=== PATIENT | male | born 1965 | race Caucasian/White ===

== ENCOUNTER → 2019-04-15 08:46 | Outpatient (BNVA) | payer MEDICARE, SELFPAY | PROVIDERS: Family Provider Internal Medicine; PCP Internal Medicine; Visit Provider Nurse Practitioner | DX: M54.16 Radiculopathy, lumbar region (principal); M25.552 Pain in left hip; Z79.891 Long term (current) use of opiate analgesic | CPT/HCPCS: 99214 ==

== ENCOUNTER → 2019-06-17 07:52 | Outpatient (BNVA) | payer MEDICARE, SELFPAY | PROVIDERS: Family Provider Internal Medicine; PCP Internal Medicine; Visit Provider Anesthesiology | DX: M25.552 Pain in left hip (principal); M79.18 Myalgia, other site; Z71.89 Other specified counseling | CPT/HCPCS: 20552; 77003; J1030; J3490 ==

== ENCOUNTER → 2019-08-20 07:55 | Outpatient (BNVA) | payer MEDICARE, SELFPAY | PROVIDERS: Family Provider Internal Medicine; PCP Internal Medicine; Visit Provider Anesthesiology | DX: M51.36 Other intervertebral disc degeneration, lumbar region (principal); M54.16 Radiculopathy, lumbar region; M47.16 Other spondylosis with myelopathy, lumbar region; M54.9 Dorsalgia, unspecified; M25.552 Pain in left hip; G47.00 Insomnia, unspecified; Z79.891 Long term (current) use of opiate analgesic | CPT/HCPCS: 99214 ==

== ENCOUNTER → 2019-11-25 09:29 | Outpatient (BNVA) | payer MEDICARE, SELFPAY | PROVIDERS: Family Provider Internal Medicine; PCP Internal Medicine; Visit Provider Anesthesiology | DX: M54.41 Lumbago with sciatica, right side (principal); M51.36 Other intervertebral disc degeneration, lumbar region; M47.16 Other spondylosis with myelopathy, lumbar region; M54.16 Radiculopathy, lumbar region; M54.9 Dorsalgia, unspecified; G47.00 Insomnia, unspecified; Z79.891 Long term (current) use of opiate analgesic | CPT/HCPCS: 99213; 99214 ==

== ENCOUNTER → 2019-12-01 13:18 | Outpatient (BNVA) | payer MEDICARE, SELFPAY | PROVIDERS: Family Provider Internal Medicine; PCP Internal Medicine; Visit Provider Anesthesiology Pain Medicine | DX: M54.16 Radiculopathy, lumbar region (principal); M54.9 Dorsalgia, unspecified | CPT/HCPCS: 64483; 64484; J1040; J3490 ==

== ENCOUNTER → 2020-02-25 08:05 | Outpatient (BNVA) | payer MEDICARE, SELFPAY | PROVIDERS: Family Provider Internal Medicine; PCP Internal Medicine; Visit Provider Anesthesiology | DX: M54.41 Lumbago with sciatica, right side (principal); M51.36 Other intervertebral disc degeneration, lumbar region; M47.16 Other spondylosis with myelopathy, lumbar region; M54.16 Radiculopathy, lumbar region; G47.00 Insomnia, unspecified; M54.9 Dorsalgia, unspecified; Z79.891 Long term (current) use of opiate analgesic | CPT/HCPCS: 99213; 99214 ==

== ENCOUNTER 2020-04-29 12:43 | Emergency (ER) | payer MEDICARE, SELFPAY ==
[2020-04-29 13:13] VITALS: BP 145/86; PULSE 83; RESP 18; TEMP 37.2; O2SAT 98; BMI 32.3
[2020-04-29 13:25] VITALS: BP 145/86; PULSE 82; RESP 18; TEMP 37.2; O2SAT 98
--- NOTE | 2020-04-29 13:48 | W.ED.GENADLT ---
HPI - General Adult General: Chief complaint: General Medical Stated complaint: covid symptoms, needs infusion Time Seen by Provider: 04/29/20 13:25 History of Present Illness: HPI narrative: Patient sent by Dr. Griffin's office due to being Covid positive. Patient does not qualify for bam infusion due to criteria and he is age 54 [address] Griffin's office MD complaint: Positive Covid Onset (ago): day(s) Associated symptoms: Reports fevers/chills and other (Myalgias); Deny chest pain, dyspnea, headache(s), nausea, rash or vomiting Review of Systems Const: Reports: fever(s); Denies: chills or body aches Eyes: Denies: change in vision or blurry vision ENMT: Denies: throat pain or nasal congestion Card: Denies: chest pain or dyspnea on exertion Resp: Denies: dyspnea, productive cough or non-productive cough GI: Denies: abdominal pain, nausea or vomiting : Denies: difficulty urinating Musc: Reports: other (Myalgias); Denies: extremity pain Skin/Breast: Denies: rash Neuro: Denies: headache(s) Psych: Denies: anxiety or depression Clifford/Lymph: Denies: easy bruising PFSH ED PFSH: Medical History (Updated 04/29/20 @ 13:48 by GALEN Cruz) DDD (degenerative disc disease), lumbar Encounter for long-term opiate analgesic use Left hip pain Lumbar radiculitis Lumbar spondylosis with myelopathy Myalgia Surgical History History of back surgery Nerve damage 1997 [facility] Hx of tonsillectomy Family History Unknown Cancer Prostate cancer-Family members in general Mother Hypertension Social History (Updated 02/25/20 @ 08:36 by Rachel Lovelace LPN) Smoking and tobacco status: never smoked Second hand smoke exposure: No Alcohol intake: current Alcohol intake frequency: holidays/special occasions only History of recent travel: No Physical Exam Const: COMMON NORMALS: no acute distress Resp: COMMON NORMALS: normal respiratory effort Psych: COMMON NORMALS: mental status grossly normal Course Vital Signs: Vital signs: Vital Signs Temperature 99 F 04/29/20 13:25 Pulse Rate 82 04/29/20 13:25 Respiratory Rate 18 04/29/20 13:25 Blood Pressure 119/89 04/29/20 13:53 Pulse Oximetry 98 04/29/20 13:25 MDM - General Adult MDM Narrative: Medical decision making narrative: Dr. Griffin sent patient over due to positive Covid test in her office yesterday. Patient does not meet inclusion criteria due to being age 54 for him though he has COPD patient is not symptomatic besides fever low-grade and body aches this time. I discussed this with Beverley at pharmacy and also Dr. Lyles. Patient will be discharged from the ER he is aware symptoms and signs to watch for for worsening symptoms. We will monitor oxygen. Discharge Plan Discharge Patient Disposition: Home Clinical Impression: COVID-19 virus infection Condition: Stable Prescriptions: No Action sennosides-docusate sodium [Senna Plus] 8.6-50 mg tablet 1 tab-cap PO .one tab hs PRNRF: 0 ranitidine HCl 300 mg tablet 300 mg PO BID RF: 0 Advair HFA 230-21 mcg/actuation HFA aerosol inhaler 2 puff INHALATION ONCE PRNRF: 0 albuterol sulfate 90 mcg/actuation HFA aerosol inhaler 1 inh INHALATION ONCE PRNRF: 0 atorvastatin 20 mg tablet 20 mg PO QDAY RF: 0 montelukast [Singulair] 10 mg tablet 10 mg PO QDAY RF: 0 multivitamin Tablet 1 tab PO QAM RF: 0 loratadine [Claritin] 10 mg tablet 10 mg PO QDAY RF: 0 vitamin D3 tablet as directed RF: 0 telmisartan [Micardis] 40 mg tablet 40 mg PO QDAY RF: 0 fluticasone propionate [Flonase Allergy Relief] 50 mcg/actuation spray,suspension 1 spray INTRANASAL BID RF: 0 ibuprofen 200 mg tablet 200 mg PO .2 tabs PRNRF: 0 oxybutynin chloride 5 mg tablet 5 mg PO DAILY RF: 0 tramadol 50 mg tablet 100 mg PO .2 tab QID PRN (Reason: pain) 30 Days Qty: 240 RF: 2 zolpidem 10 mg tablet 10 mg PO .one at bedtime 30 Days Qty: 30 RF: 2 Discharge Orders: Discharge ED (Routine); Ordered 04/29/20 Ordered By: Albino Gunter Referrals: Estephania Doran MD [Primary Care Provider] - Discharge Diet: Usual diet Discharge Activity: Resume usual activity Patient Instructions: Viral Syndrome (ED) Activity Restrictions/Additional Instructions: Self quarantine next 10 days. Follow-up Dr. Griffin or return ER if oxygen levels decrease or symptoms significantly worsen. Can take Tylenol or ibuprofen for discomfort. Follow Centers for Disease Control guidelines for positive Covid infection at home. Coding Level of Care Code ED Multimedia Engineer for Chg Fwd Exam Expanded Problem Focused
[2020-04-29 13:53] VITALS: BP 119/89
== END 2020-04-29 13:55 | disposition home or self-care (01) ==
PROVIDERS: Emergency Provider Nurse Practitioner Family; PCP Internal Medicine
DX: U07.1 COVID-19 (principal)
CPT/HCPCS: 99281

== ENCOUNTER → 2020-05-30 08:39 | Outpatient (BNVA) | payer MEDICARE, SELFPAY | PROVIDERS: PCP Internal Medicine; Visit Provider Anesthesiology | DX: M51.36 Other intervertebral disc degeneration, lumbar region (principal); M54.16 Radiculopathy, lumbar region; M54.9 Dorsalgia, unspecified; M47.16 Other spondylosis with myelopathy, lumbar region; G47.00 Insomnia, unspecified; Z79.891 Long term (current) use of opiate analgesic | CPT/HCPCS: 99213 ==

== ENCOUNTER → 2020-06-01 09:56 | Outpatient (BNVA) | payer MEDICARE, SELFPAY | PROVIDERS: PCP Internal Medicine; Visit Provider Anesthesiology | DX: G89.29 Other chronic pain (principal); M54.9 Dorsalgia, unspecified; M47.16 Other spondylosis with myelopathy, lumbar region; M54.16 Radiculopathy, lumbar region | CPT/HCPCS: 62323; J1040; J3490 ==

== ENCOUNTER → 2020-08-25 08:09 | Outpatient (BNVA) | payer MEDICARE, SELFPAY | PROVIDERS: PCP Internal Medicine; Visit Provider Anesthesiology | DX: M54.16 Radiculopathy, lumbar region (principal); M54.9 Dorsalgia, unspecified; M47.16 Other spondylosis with myelopathy, lumbar region; M51.36 Other intervertebral disc degeneration, lumbar region; G47.00 Insomnia, unspecified; Z79.891 Long term (current) use of opiate analgesic | CPT/HCPCS: 99213 ==

== ENCOUNTER → 2020-12-01 08:03 | Outpatient (BNVA) | payer MEDICARE, SELFPAY | PROVIDERS: PCP Internal Medicine; Visit Provider Anesthesiology | DX: M51.36 Other intervertebral disc degeneration, lumbar region (principal); M54.16 Radiculopathy, lumbar region; M47.16 Other spondylosis with myelopathy, lumbar region; G47.00 Insomnia, unspecified; Z79.891 Long term (current) use of opiate analgesic | CPT/HCPCS: 99213 ==

== ENCOUNTER → 2020-12-07 08:19 | Outpatient (BNVA) | payer MEDICARE, SELFPAY | PROVIDERS: PCP Internal Medicine; Visit Provider Anesthesiology | DX: M54.16 Radiculopathy, lumbar region (principal); M51.36 Other intervertebral disc degeneration, lumbar region; M47.16 Other spondylosis with myelopathy, lumbar region; Z79.891 Long term (current) use of opiate analgesic | CPT/HCPCS: 62323; J1040; J3490 ==

== ENCOUNTER → 2021-03-22 08:21 | Outpatient (BNVA) | payer MEDICARE, SELFPAY | PROVIDERS: PCP Internal Medicine; Visit Provider Anesthesiology | DX: M47.16 Other spondylosis with myelopathy, lumbar region (principal); M51.36 Other intervertebral disc degeneration, lumbar region; M54.16 Radiculopathy, lumbar region; G47.00 Insomnia, unspecified; Z79.891 Long term (current) use of opiate analgesic | CPT/HCPCS: 99213 ==

== ENCOUNTER 2022-03-13 09:53 | Outpatient (CLI) | payer MEDICARE, SELFPAY ==
--- NOTE | 2022-03-13 10:23 | XRR_ITS ---
PROCEDURE INFORMATION: Exam: XR Chest Exam date and time: 03/13/2022 10:23 AM Age: 56 years old Clinical indication: Patient HX: History--cough for 1week TECHNIQUE: Imaging protocol: Radiologic exam of the chest. Views: 2 views. COMPARISON: CR XR chest 2V* [id number] 07/30/2017 11:05 AM FINDINGS: Lungs: See Pleural spaces finding. Pleural spaces: Vague opacity right cardiophrenic angle partially obscuring medial margin of the right hemidiaphragm on the current study that may be due to increasing pericardial fat but should be confirmed on CT examination of the chest to exclude underlying mass. Lung louis are otherwise aerated and clear. Heart/Mediastinum: Cardiac silhouette is not enlarged. Bones/joints: Unremarkable. XR/XR chest 2V* [id number] IMPRESSION: Interval development of ill-defined opacity right cardiophrenic angle of uncertain etiology as discussed above.
== END 2022-03-13 09:54 | disposition home or self-care (01) ==
LOC: RAD 09:56
PROVIDERS: PCP Internal Medicine; Visit Provider Internal Medicine
DX: R05.9 Cough, unspecified (principal)
CPT/HCPCS: 71046

== ENCOUNTER 2022-03-18 07:30 | Outpatient (CLI) | payer MEDICARE, SELFPAY ==
--- NOTE | 2022-03-18 07:45 | CTR_ITS ---
PROCEDURE INFORMATION: Exam: CT Chest With Contrast; Diagnostic Exam date and time: 03/18/2022 8:01 AM Age: 56 years old Clinical indication: Abnormal findings; Abnormal radiologic exam of lung or chest; Patient HX: Cough x 3 wks; Additional info: Abnormal chest xray/cough TECHNIQUE: Imaging protocol: Diagnostic computed tomography of the chest with contrast. Radiation optimization: All CT scans at this facility use at least one of these dose optimization techniques: automated exposure control; mA and/or kV adjustment per patient size (includes targeted exams where dose is matched to clinical indication); or iterative reconstruction. Contrast material: OMNIPAQUE 350; Contrast volume: 95 ml; Contrast route: INTRAVENOUS (IV); COMPARISON: CR XR chest 2V* [id number] 03/13/2022 10:23 AM RADIATION DOSE METRICS: Total DLP (mGy-cm): 797.64 FINDINGS: Thyroid: The bilateral thyroid lobes are unremarkable. Lungs: Medial segment right middle lobe mild subsegmental atelectasis/scarring. Mild inferior lingular pulmonary subsegmental atelectasis. No right costophrenic angle abnormality identified. No mass. Pleural spaces: No pneumothorax. No pleural effusion. Heart: No cardiomegaly. No pericardial effusion. Coronary arteries: No coronary artery calcifications. Lymph nodes: No enlarged lymph nodes. Vasculature: Unremarkable. No aortic aneurysm. Spleen: A small anterior splenule is present. Bones/joints: Vertebral body marginal osteophytes are noted at midthoracic spinal levels. Soft tissues: Unremarkable. CT/CT chest w con* [id number] IMPRESSION: No acute findings.
[2022-03-18] MEDS: iohexol 350 mg/mL 500 mL Btl (per mL) IV (08:05)
== END 2022-03-18 07:31 | disposition home or self-care (01) ==
PROVIDERS: PCP Internal Medicine; Visit Provider Nurse Practitioner Family
DX: R93.89 Abnormal findings on diagnostic imaging of other specified body structures (principal); R05.9 Cough, unspecified
CPT/HCPCS: 71260; Q9967

== ENCOUNTER 2022-04-09 13:07 | Outpatient (CLI) | payer MEDICARE, SELFPAY | END 2022-04-09 13:08 | disposition home or self-care (01) | LOC: RT 13:07 | PROVIDERS: PCP Internal Medicine; Visit Provider Nurse Practitioner Family | DX: R05.9 Cough, unspecified (principal); J45.30 Mild persistent asthma, uncomplicated | CPT/HCPCS: 94060; J7613 ==

== ENCOUNTER 2022-08-21 07:04 | Outpatient (CLI) | payer MEDICARE, SELFPAY ==
--- NOTE | 2022-08-21 07:10 | CT_ITS ---
WS: [id number] CT LUMBAR SPINE TECHNIQUE: Noncontrast CT of the lumbar spine with coronal and sagittal reformatted images. CLINICAL INFORMATION: DEGENERATIVE DISC DISEASE, LUMBOSACRAL SPINE W/RADICULOPATHY COMPARISON: None. DLP: 1238.[address] scans at [facility] use at least one of these dose optimization techniques: automated e xposure control; mA and/or kV adjustment per patient size (includes targeted exams where dose is matc hed to clinical indication); or iterative reconstruction. FINDINGS: Minimal lumbar curve. Prior postoperative changes anterior screw fixation L5-S1 with interbody fusion graft. Evidence of bony bridging beyond the confines of the graft. Fracture of the anterior S1 fixat ion screw with slight angulation. L1-L2: Mild facet arthropathy. Spinal canal and foramen are patent. L2-L3: Mild annular bulging. Slight effacement of ventral thecal sac. Mild facet arthropathy. Spinal canal and foramen are patent. L3-L4: Mild annular bulging with slight effacement of the ventral thecal sac. Mild facet arthropathy. Spinal canal and foramen are patent. L4-L5: Mild disc bulging with slight impingement traversing L5 nerve roots bilaterally. Moderate face t arthropathy. Ligamentum flavum hypertrophy. Mild RIGHT greater than LEFT foraminal narrowing. L5-S1: Postoperative changes. Spinal canal and foramen are patent. Moderate facet arthropathy. Adrenal glands are normal. CT/CT lumbar spine wo con* [id number] IMPRESSION: 1. Anterior screw fixation L5-S1 with interbody fusion graft. Evidence of bony bridging beyond the confines of the graft. 2. Fracture of the anterior S1 fixation screw. L5 fixation screw appears intac t. 3. Annular bulging L4-L5 with slight impingement traversing L5 nerve roots denise aterally. Mild RIGHT greater than LEFT foraminal narrowing at this level. 4. Moderate facet arthropathy L4-L5. 5. Mild annular bulging L3-L4 with mild RIGHT foraminal narrowing.
== END 2022-08-21 07:05 | disposition home or self-care (01) ==
PROVIDERS: PCP Internal Medicine; Visit Provider Nurse Practitioner Family
DX: M51.17 Intervertebral disc disorders with radiculopathy, lumbosacral region (principal); Z98.1 Arthrodesis status; M47.816 Spondylosis without myelopathy or radiculopathy, lumbar region
CPT/HCPCS: 72131

== ENCOUNTER → 2022-09-09 15:07 | Outpatient (BNVA) | payer MEDICARE, SELFPAY | PROVIDERS: PCP Internal Medicine; Visit Provider Internal Medicine Pulmonary Disease | DX: M25.641 Stiffness of right hand, not elsewhere classified (principal); M25.642 Stiffness of left hand, not elsewhere classified; J45.909 Unspecified asthma, uncomplicated; R06.02 Shortness of breath | CPT/HCPCS: 36415; 82785; 85025; 85651; 86003; 86140; 86160; 86162; 86235; 86255; 86376; 99204 ==

== ENCOUNTER → 2022-10-21 11:21 | Outpatient (BNVA) | payer MEDICARE, SELFPAY | PROVIDERS: PCP Internal Medicine; Visit Provider Internal Medicine Pulmonary Disease | DX: J45.909 Unspecified asthma, uncomplicated (principal); M25.641 Stiffness of right hand, not elsewhere classified; M25.642 Stiffness of left hand, not elsewhere classified; J82.83 Eosinophilic asthma | CPT/HCPCS: 99214 ==

== ENCOUNTER 2022-11-20 08:00 | Outpatient (CLI) | payer MEDICARE, SELFPAY ==
[2022-11-20 08:31] VITALS: PULSE 77
[2022-11-20] MEDS: albuterol 2.5 mg/3 mL Neb INHALATION (08:31)
[2022-11-20 08:37] VITALS: PULSE 72; RESP 18; O2SAT 98
== END 2022-11-20 08:01 | disposition home or self-care (01) ==
PROVIDERS: PCP Internal Medicine; Visit Provider Internal Medicine Pulmonary Disease
DX: R06.09 Other forms of dyspnea (principal)
CPT/HCPCS: 94060; 94618; 94726; 94729; J7613

== ENCOUNTER → 2023-02-24 09:46 | Outpatient (BNVA) | payer MEDICARE, SELFPAY | PROVIDERS: PCP Internal Medicine; Visit Provider Internal Medicine Pulmonary Disease | DX: J98.4 Other disorders of lung (principal); M25.641 Stiffness of right hand, not elsewhere classified; M25.642 Stiffness of left hand, not elsewhere classified; J45.30 Mild persistent asthma, uncomplicated | CPT/HCPCS: 99214 ==

== ENCOUNTER → 2023-05-29 07:56 | Outpatient (BNVA) | payer MEDICARE, SELFPAY | PROVIDERS: PCP Internal Medicine; Visit Provider Surgery | DX: Z12.11 Encounter for screening for malignant neoplasm of colon (principal) | CPT/HCPCS: 99024; 99204 ==

== ENCOUNTER 2023-07-30 06:14 | Day surgery (SDC) | payer MEDICARE, SELFPAY ==
[2023-07-30 06:32] VITALS: BP 162/92; PULSE 82; RESP 18; TEMP 36.5; O2SAT 97; BMI 32.3
[2023-07-30] MEDS: sodium chloride 0.9% 1,000 ML 30 ML IV (06:40)
--- NOTE | 2023-07-30 06:41 | ANES.PREANE2 ---
Pre-Anesthetic Assessment Height/Weight: Height 1.78 m Weight 102.058 kg Temp Pulse Resp BP Pulse Ox O2 Del Method 97.7 F 82 18 162/92 97 Room Air 07/30/23 06:32 07/30/23 06:32 07/30/23 06:32 07/30/23 06:32 07/30/23 06:32 07/30/23 06:32 Preop Diagnosis: Screening Operation Date: 07/30/23 07:15 Proposed Procedures p Colonoscopy(Not Applicable) - Darek Zamudio DO Familial anesthetic complications: None Was Beta Kaya taken within 24 hours: N/A Was Clonidine taken within 24 hours: N/A Last intake: Intake Last Liquid Date 07/29/23 Last Liquid Time 20:00 Last Solid Date 07/28/23 Last Solid Time 16:00 Social Alcohol (Few times a week) and No tobacco Exam alert, oriented x 3, clear to auscultation bilaterally and regular rate & rhythm Airway Submandibular: within normal limits Cervical ROM: within normal limits Mallampati: Class III Dentition: full History/ROS No significant history except as noted and No significant complaints Pulmonary Asthma, Cough and Sleep Apnea CV/HEM Hypertension None reported Hepatic None reported GI None reported Metabolic Hyperlipidemia and Morbid Obesity Musc/skel Lower Back Pain, Osteoarthritis/DJD (Fusion in 1997, pain ever since) and Weakness (Right leg) Neuropsych Anxiety, Depression and Neuropathy Anesthetic Plan ASA status: 3 Anesthesia: Anesthesia Evaluation, General and MAC Risk of > 500 ml blood loss (7ml/kg in children): No Medications/Allergies Home Medications Medication Instructions Recorded Confirmed Last Taken Type albuterol sulfate 90 mcg/actuation 1 inh inhalation PRN PRN Shortness 04/12/19 07/30/23 07/29/23 History aerosol inhaler Of Breath Or Wheezing fluticasone propionate 50 1 spray intranasal BID 04/12/19 07/30/23 07/29/23 History mcg/actuation nasal spray,suspension (Flonase Allergy Relief) ibuprofen 200 mg tablet 200 mg PO PRN PRN Pain 04/12/19 07/30/23 07/29/23 History loratadine 10 mg tablet (Claritin) 10 mg PO QDAY 04/12/19 07/30/23 07/29/23 History multivitamin 1 tab PO QAM 04/12/19 07/30/23 07/29/23 History ranitidine HCl 300 mg tablet 300 mg PO BID PRN Heartburn 04/12/19 07/30/23 07/29/23 History telmisartan 40 mg tablet (Micardis) 40 mg PO QDAY 04/12/19 07/30/23 07/29/23 History vitamin D3 1 tab PO DAILY 04/12/19 07/30/23 07/29/23 History tramadol 50 mg tablet 100 mg (2 x 50 mg) PO .2 tab QID 03/22/21 07/30/23 07/30/23 Rx PRN pain 30 days #240 tabs rosuvastatin 5 mg tablet 5 mg PO DAILY 10/21/22 07/30/23 07/29/23 History fluticasone fur. 100 mcg-umeclid 1 inh inhalation DAILY #60 ea 04/21/23 07/30/23 07/29/23 Rx 62.5 mcg-vilant 25 mcg inhalat.powder (Trelegy Ellipta) Allergies Allergy/AdvReac Type Severity Reaction Status Date / Time erythromycin base Allergy Unknown Verified 07/30/23 06:29 morphine Allergy unknown Verified 07/30/23 06:29 paroxetine Allergy Unknown Verified 07/30/23 06:29 Penicillins Allergy unknown Verified 07/30/23 06:29 prochlorperazine Allergy Unknown Verified 07/30/23 06:29 Current Medications Generic Name Dose Route Start Last Admin Trade Name Freq PRN Reason Stop Dose Admin Sodium Chloride 1,000 mls @ 30 mls/hr 07/30/23 06:30 07/30/23 06:40 Sodium Chloride 0.9% IV 07/31/23 06:29 30 mls/hr .Q24H ECHO Administration PFSH Anesthesia Medical History Myalgia Left hip pain DDD (degenerative disc disease), lumbar Encounter for long-term opiate analgesic use Lumbar radiculitis Lumbar spondylosis with myelopathy Surgical History Hx of tonsillectomy History of back surgery Nerve damage 1997 [facility] Family History Unknown Cancer Prostate cancer-Family members in general Mother Hypertension Social History Second hand smoke exposure: No Alcohol intake: current Alcohol intake frequency: holidays/special occasions only Substance/Drug Use: never Data Anesthesia Cardiac Studies: No Data to Display
--- NOTE | 2023-07-30 07:26 | P.HP_ITS ---
Providers/Chief Complaint Primary Care Provider: Estephania Doran MD Chief Complaint: Z12.11 History of Present Illness Cm Joy is a 57 year old male Review of Systems 2 General: Reports: 10 or more systems reviewed and unremarkable except in HPI and below Medications/Allergies Home Medications Medication Instructions Recorded Confirmed Last Taken Type albuterol sulfate 90 mcg/actuation 1 inh inhalation PRN PRN Shortness 04/12/19 07/30/23 07/29/23 History aerosol inhaler Of Breath Or Wheezing fluticasone propionate 50 1 spray intranasal BID 04/12/19 07/30/23 07/29/23 History mcg/actuation nasal spray,suspension (Flonase Allergy Relief) ibuprofen 200 mg tablet 200 mg PO PRN PRN Pain 04/12/19 07/30/23 07/29/23 History loratadine 10 mg tablet (Claritin) 10 mg PO QDAY 04/12/19 07/30/23 07/29/23 History multivitamin 1 tab PO QAM 04/12/19 07/30/23 07/29/23 History ranitidine HCl 300 mg tablet 300 mg PO BID PRN Heartburn 04/12/19 07/30/23 07/29/23 History telmisartan 40 mg tablet (Micardis) 40 mg PO QDAY 04/12/19 07/30/23 07/29/23 History vitamin D3 1 tab PO DAILY 04/12/19 07/30/23 07/29/23 History tramadol 50 mg tablet 100 mg (2 x 50 mg) PO .2 tab QID 03/22/21 07/30/23 07/30/23 Rx PRN pain 30 days #240 tabs rosuvastatin 5 mg tablet 5 mg PO DAILY 10/21/22 07/30/23 07/29/23 History fluticasone fur. 100 mcg-umeclid 1 inh inhalation DAILY #60 ea 04/21/23 07/30/23 07/29/23 Rx 62.5 mcg-vilant 25 mcg inhalat.powder (Trelegy Ellipta) Allergies Allergy/AdvReac Type Severity Reaction Status Date / Time erythromycin base Allergy Unknown Verified 07/30/23 06:29 morphine Allergy unknown Verified 07/30/23 06:29 paroxetine Allergy Unknown Verified 07/30/23 06:29 Penicillins Allergy unknown Verified 07/30/23 06:29 prochlorperazine Allergy Unknown Verified 07/30/23 06:29 PFSH Acute PFSH: Medical History Myalgia Left hip pain DDD (degenerative disc disease), lumbar Encounter for long-term opiate analgesic use Lumbar radiculitis Lumbar spondylosis with myelopathy Surgical History Hx of tonsillectomy History of back surgery Nerve damage 1997 [facility] Family History Unknown Cancer Prostate cancer-Family members in general Mother Hypertension Social History Second hand smoke exposure: No Alcohol intake: current Alcohol intake frequency: holidays/special occasions only Substance/Drug Use: never Vitals/I&O/Wt Last Vital Signs Temp 97.7 F 07/30/23 06:32 Pulse 82 07/30/23 06:32 Resp 18 07/30/23 06:32 BP 162/92 07/30/23 06:32 Pulse Ox 97 07/30/23 06:32 O2 Del Method Room Air 07/30/23 06:32 Weight last 48 hrs Weight 225 lb A&P Assessment and plan (1) Colon cancer screening: Plan Colonoscopy Attestations Medical Necessity Statement*: Home Coding Level of Care Code Acute Code for Chg Fwd Diagnoses Colon cancer screening Z12.11
[2023-07-30 07:51] VITALS: BP 154/99; PULSE 100; RESP 16; TEMP 36.5; O2SAT 95
[2023-07-30 08:13] VITALS: BP 138/91; PULSE 77; RESP 18; O2SAT 94
--- NOTE | 2023-07-30 14:38 | ANE.PACU2 ---
Inpatient post-anesthesia follow up: Airway intact: Yes Vital signs: Temperature 97.7 F Pulse Rate 77 Respiratory Rate 18 Blood Pressure 138/91 Pulse Oximetry 94 Oxygen Delivery Me thod Room Air Oxygen Flow Rate Fraction of Inspir ed Oxygen Hydration adequate: Yes Nausea and vomiting: No Pain level: 2 Mental status: Baseline
== END 2023-07-30 08:16 | disposition home or self-care (01) ==
PROVIDERS: PCP Internal Medicine; Visit Provider Surgery
PROC: 0DJD8ZZ Inspection of Lower Intestinal Tract, Via Natural or Artificial Opening Endoscopic (ICD-10-PCS; CPT 45378; principal; 2023-07-30 07:15)
DX: Z12.11 Encounter for screening for malignant neoplasm of colon (principal); K63.5 Polyp of colon; K64.8 Other hemorrhoids
CPT/HCPCS: 45385; 88305; J2704; J7030

== ENCOUNTER → 2023-08-18 09:49 | Outpatient (BNVA) | payer MEDICARE, SELFPAY | PROVIDERS: PCP Internal Medicine; Visit Provider Surgery | DX: Z09 Encounter for follow-up examination after completed treatment for conditions other than malignant neoplasm (principal); K64.8 Other hemorrhoids; K63.5 Polyp of colon | CPT/HCPCS: 99214 ==

== ENCOUNTER → 2023-08-27 09:30 | Outpatient (BNVA) | payer MEDICARE, SELFPAY | PROVIDERS: PCP Internal Medicine; Visit Provider Internal Medicine Pulmonary Disease | DX: J45.30 Mild persistent asthma, uncomplicated (principal); M25.641 Stiffness of right hand, not elsewhere classified; M25.642 Stiffness of left hand, not elsewhere classified; J98.4 Other disorders of lung | CPT/HCPCS: 99214 ==